=== PATIENT | male | born 1950 | race Caucasian/White ===

== ENCOUNTER 2016-05-24 08:45 | Emergency (ER) | payer MEDICARE ==
[2016-05-24 09:24] LABS: BASOPHILS 0.5 % (0.0-2.0); EOSINOPHILS 2.7 % (0-7); HEMATOCRIT 47.6 % (42.0-54.0); HEMOGLOBIN 16.2 g/dL (13.5-17.5); IMMATURE GRANULOCYTES 0.2 % (0-5); LYMPHOCYTES 30.2 % (15-50); MCH 32.7 pg (26.0-34.0); MEAN PLATELET VOLUME 10.5 fL (7.4-10.4); MONOCYTES 7.4 % (2-11); PLATELET COUNT 145 10x3/uL (130-400); RBC 4.96 10x6/uL (4.20-6.10); RDW 12.1 % (11.5-14.5); WBC 6.2 10x3/uL (4.8-10.8)
[2016-05-24 09:38] LABS: ALBUMIN 3.7 g/dL (3.4-5.0); ALKALINE PHOSPHATASE 93 U/L (46-116); ALT (SGPT) 28 U/L (10-68); BILIRUBIN - TOTAL 0.82 mg/dL (0.2-1.3); CALC OSMOLALITY 279 mosm/kg (275-300); CALCIUM 9.8 mg/dL (8.5-10.1); CARBON DIOXIDE 29.8 mmol/L (21.0-32.0); CHLORIDE - SERUM 104 mmol/L (98-107); CREATININE - SERUM 1.2 mg/dL (0.6-1.3); GLUCOSE 109 mg/dL (74-106); POTASSIUM - SERUM 4.2 mmol/L (3.5-5.1); PROTEIN - SERUM 7.2 g/dL (6.4-8.2); SODIUM 140 mmol/L (136-145); UREA NITROGEN 12 mg/dL (7-18); eGFR NON AFRICAN AMERICAN 64 mL/min (90-120)
[2016-05-24 09:50] LABS: CHOL - HDL RATIO 4.6 ratio (2.3-4.9); CHOLESTEROL, TOTAL 274 mg/dL (0-200); CKMB 1.1 U/L (0.0-3.6); CREATINE KINASE 75 UL (21-232); HDL CHOLESTEROL 59 mg/dL (32-96); LDL CHOLESTEROL 191 mg/dL (0-100); LDL-HDL RATIO 3.2 ratio (1.5-3.5); TRIGLYCERIDE 121 mg/dL (30-200); TROPONIN-I < 0.017 ng/mL (0.000-0.060)
== END 2016-05-24 10:20 | disposition home or self-care (01) ==
LOC: D.ER 08:45
PROVIDERS: Emergency Medicine
DX: R09.1 Pleurisy (principal); J20.9 Acute bronchitis, unspecified; J44.9 Chronic obstructive pulmonary disease, unspecified; M94.0 Chondrocostal junction syndrome [Tietze]

== ENCOUNTER 2016-07-06 09:12 | Emergency (ER) | payer MEDICARE ==
[2016-07-06 09:46] LABS: BASOPHILS 0.4 % (0.0-2.0); EOSINOPHILS 2.3 % (0-7); HEMATOCRIT 50.4 % (42.0-54.0); HEMOGLOBIN 17.3 g/dL (13.5-17.5); IMMATURE GRANULOCYTES 0.4 % (0-5); LYMPHOCYTES 18.9 % (15-50); MCH 33.3 pg (26.0-34.0); MCHC 34.3 g/dL (31.0-37.0); MCV 97.1 fL (80.0-100.0); MEAN PLATELET VOLUME 10.6 fL (7.4-10.4); RBC 5.19 10x6/uL (4.20-6.10); WBC 8.3 10x3/uL (4.8-10.8)
[2016-07-06 09:47] LABS: PLATELET COUNT 114 10x3/uL (130-400)
[2016-07-06 10:04] LABS: ALBUMIN 4.1 g/dL (3.4-5.0); ANION GAP 14.8 mmol/L (8-16); BILIRUBIN - TOTAL 0.8 mg/dL (0.2-1.3); CALCIUM 9.2 mg/dL (8.5-10.1); CARBON DIOXIDE 28.1 mmol/L (21.0-32.0); CREATININE - SERUM 1.4 mg/dL (0.6-1.3); POTASSIUM - SERUM 3.9 mmol/L (3.5-5.1); PROTEIN - SERUM 7.9 g/dL (6.4-8.2)
== END 2016-07-06 11:08 | disposition home or self-care (01) ==
LOC: D.ER 09:12
PROVIDERS: Emergency Medicine
DX: J44.1 Chronic obstructive pulmonary disease with (acute) exacerbation (principal); M94.0 Chondrocostal junction syndrome [Tietze]; R00.0 Tachycardia, unspecified

== ENCOUNTER → 2017-01-09 09:31 | Outpatient (CLI) | payer MEDICARE | END | disposition home or self-care (01) | LOC: D.NM 09:31 | DX: R07.89 Other chest pain (principal) ==

== ENCOUNTER 2017-02-21 18:20 | Emergency (ER) | payer MEDICARE ==
[2017-02-21 19:03] LABS: BASOPHILS 0.5 % (0-2); EOSINOPHILS 4.8 % (0-7); HEMOGLOBIN 16.3 g/dL (13.5-17.5); IMMATURE GRANULOCYTES 0.1 % (0-5); LYMPHOCYTES 29.9 % (15-50); MCH 32.9 pg (26.0-34.0); MCHC 34.7 g/dL (31.0-37.0); MCV 94.8 fL (80.0-100.0); MEAN PLATELET VOLUME 10.9 fL (7.4-10.4); MONOCYTES 7.9 % (2-11); NEUTROPHILS 56.8 % (40-80); RBC 4.96 10x6/uL (4.20-6.10); RDW 12.8 % (11.5-14.5); WBC 7.6 10x3/uL (4.8-10.8)
[2017-02-21 19:04] LABS: PLATELET COUNT 164 10x3/uL (130-400)
[2017-02-21 19:14] LABS: ALBUMIN 3.9 g/dL (3.4-5.0); ANION GAP 17.1 mmol/L (8-16); BILIRUBIN - TOTAL 0.68 mg/dL (0.2-1.3); CALCIUM 8.9 mg/dL (8.5-10.1); CARBON DIOXIDE 21.5 mmol/L (21.0-32.0); CREATININE - SERUM 1.2 mg/dL (0.6-1.3); POTASSIUM - SERUM 3.6 mmol/L (3.5-5.1); PROTEIN - SERUM 7.6 g/dL (6.4-8.2)
[2017-02-21 19:43] LABS: CREATINE KINASE 96 UL (21-232); TROPONIN-I < 0.017 ng/mL (0.000-0.060)
== END 2017-02-21 21:45 | disposition home or self-care (01) ==
LOC: D.ER 18:20
PROVIDERS: Emergency Medicine
DX: R55 Syncope and collapse (principal); F10.129 Alcohol abuse with intoxication, unspecified; J44.9 Chronic obstructive pulmonary disease, unspecified

== ENCOUNTER → 2017-06-08 19:05 | Outpatient (CLI) | payer MEDICARE ==
[~2017-06-08 19:05] MED LIST: IBUPROFEN200 MG PO; VENTOLIN HFA18 GM INH
== END | disposition home or self-care (01) ==
LOC: D.LABREF 19:05
DX: N39.0 Urinary tract infection, site not specified (principal)

== ENCOUNTER 2017-06-23 09:14 | Outpatient (CLI) | payer MEDICARE ==
[2017-06-23] MEDS ORDERED: IBUPROFEN200 MG PO (09:31)
[2017-06-23] MEDS ORDERED: VENTOLIN HFA18 GM INH (10:05)
[2017-06-23 10:20] LABS: HEMATOCRIT 46.5 % (42.0-54.0); HEMOGLOBIN 15.8 g/dL (13.5-17.5); MCH 32.6 pg (26.0-34.0); MCV 95.9 fL (80.0-100.0); MEAN PLATELET VOLUME 10.5 fL (7.4-10.4); RBC 4.85 10x6/uL (4.20-6.10); RDW 12.9 % (11.5-14.5); WBC 9.4 10x3/uL (4.8-10.8)
[2017-06-30 11:38] VITALS: BMI 30.4
== END 2017-06-23 23:59 | disposition home or self-care (01) ==
LOC: D.OPS 09:14 → EDSTATUS 06-24 07:30
PROVIDERS: Anesthesiology
DX: Z53.9 Procedure and treatment not carried out, unspecified reason (principal); Z01.810 Encounter for preprocedural cardiovascular examination; Z01.811 Encounter for preprocedural respiratory examination; Z01.812 Encounter for preprocedural laboratory examination

== ENCOUNTER 2017-06-30 10:52 | Outpatient (CLI) | payer MEDICARE ==
[~2017-06-30] VITALS: Ht 172.7 cm; Wt 90.9 kg
--- NOTE | ~2017-06-30 | OP ---
PATIENT NAME: AIDAN SHER MEDICAL RECORD: [id number] :48 LOCATION:D.CAT ADMISSION DATE: SURGEON: SAUD MUHAMMAD MD DATE OF OPERATION: 06/30/2017 PROCEDURES: Left heart catheterization, selective coronary angiography, right radial approach. CATHETERS: Radial sheath, [place] catheter. The procedure was well tolerated. Proceeded with PTCA and stenting of the LAD. FINDINGS: Left ventriculography in the 30-degree WARE view: Normal wall motion, normal systolic function. CORONARY ANATOMY: LEFT MAIN: Left main is free of disease. LAD: LAD has a diffuse 80% stenosis in the mid portion. CIRCUMFLEX: Left dominant system, free of disease. RIGHT CORONARY ARTERY: Rudimentary, free of disease. IMPRESSION: Single-vessel disease involving LAD, intervention to LAD momentarily. DESCRIPTION OF PROCEDURE: Using indwelling radial sheath, EBU 3.5 guiding catheter provided good guide catheter support, followed by 300 cm Whisper wire was placed across the occluded LAD down to portion of the vessel. Stent deployed was a 2.5 x 15 Integrity nondrug-eluting stent, inflated to 14 atmospheres for 45 seconds. Final angiography shows excellent resolution of 80% stenosis, no significant residual. GABRIEL flow was 3 throughout the procedure. Heparin and Integrilin were used during the case. Plavix was loaded in the lab. Sheath was closed with TR band. TRANSINT:[id number] Voice Confirmation ID: [id number] DOCUMENT ID: [id number] SAUD MUHAMMAD MD at 1512 CC: [id number] DICTATION DATE: 06/30/17 1337 TELESERVICES REPRESENTATIVE: 06/30/17 1417 DEP CLI 06/30/17 [facility] [address] [place] [address]
--- NOTE | ~2017-06-30 | HEMODYNAMI ---
PATIENT:AIDAN SHER MEDICAL RECORD: [id number] : 48 LOCATION:[facility] ADMISSION DATE: 06/30/17 Generatedon:06/30/201713:36 Patient name: AIDAN SHER Patient #: [id number] SSN: : 1950 Date of study: 06/30/2017 Page: Of Hemodynamic Procedure Report Patient Data Patient Demographics Procedure consent was obtained First Name: AIDAN Gender: Male Last Name: CHRISTOS : 1950 Middle Initial: M Age: 66 year(s) Patient #: [id number] Race: Unknown Additional ID: [id number] Contact details Address: [place] [address] State: [place] City: [place] Zip code: [address] Past Medical History Allergies: No known allergies Admission Admission Data Admission Date: 06/30/2017 Admission Time: 10:52 Admit Source: Other Lab Results Lab Result Date: 06/30/2017 Lab Result Time: 11:55 Biochemistry Name Units Result Min Max BUN mg/dl 16 --(---*)-- 7 18 Creatinine mg/dl 1.2 --(---*)-- 0.6 1.3 CBC Name Units Result Min Max Hematocrit % 42.8 --(*---)-- 42 54 Hemoglobin g/dl 15.1 --(-*--)-- 13.5 17.5 Procedure Procedure Types Cath Procedure Diagnostic Procedure [facility] w/Coronaries PCI Procedure Coronary Stent Coronary Stent Initial Miscellaneous Procedures Moderate Sedation up to 15 minutes Procedure Description Procedure Date Procedure Date: 06/30/2017 Procedure Start Time: 13:14 Procedure End Time: 13:35 Procedure Staff Name Function Yoav Lopez RT Monitor Sherri Trivedi RT Scrub Alex Wright RN Nurse Colt Harper MD Performing Physician Procedure Data Cath Procedure Fluoroscopy Diagnostic fluoroscopy Total fluoroscopy Time: 3.1 time: 3.1 min min Diagnostic fluoroscopy Total fluoroscopy dose: 990 dose: 990 mGy mGy Contrast Material Contrast Material Type Amount (ml) Isovue 300 85 Entry Location Entry Primary Successful Side Size Upsize Upsize Entry Closure Ayala ccessful Closure Location (Fr) 1 (Fr) 2 (Fr) Remarks Device Remarks Radial Right 6 Fr Mechanical artery Short Compression Estimated blood loss: 10 ml Diagnostic catheters Device Type Used For End Catheter Placement DIAGNOSTIC [place] 110cm 5 Procedure Fr catheter ([id number]) Procedure Complications No complications Procedure Medications Medication Administration Route Dosage 0.9% NaCl I.V. 100 ml/hr Oxygen NC 2 l/min Heparin Flush Bag added to field 2 bags (1000units/500ml NS) Lidocaine 2% added to field 20 Radial Cocktail added to field 1 syringe (Verapomil 2mg/Nitro 400mcg/Heparin 1500units) Versed I.V. 2 mg Fentanyl I.V. 100 mcg Radial Cocktail I.A. 1 syringe (Verapomil 2mg/Nitro 400mcg/Heparin 1500units) Heparin Bolus I.V. 5000 units Integrilin (Bolus I.V. 8.5 ml 2mg/ml) Integrilin (Bolus wasted 1.5 ml 2mg/ml) Plavix P.O. 600 mg Hemodynamics Rest HGB: 15.1 (g/dl) Heart Rate: 91 (bpm) Pressure Samples Time Site Value (mmHg) Purpose Heart Use Rate(bpm) 13:17 LV 104/5,9 Snapshot 94 13:18 AO 100/68(82) Pullback 92 13:18 LV 100/9,9 Pullback 92 Gradients Valve Time Site 1 Site 2 Mean SEP/DFP Peak To Heart Use (mmHg) (sec/min) Peak Rate (mmHg) (bpm) Aortic 13:18 LV AO 1 7 0 92 100/9,9 100/68(82) Calculations Valve P-P Mean Valve Index Valve Source Name Gradient Area Flow (cm2) Aortic 0 1 0 1 Snapshots Pre Cath Intra NCS Post Cath Vital Signs Time Heart Resp SPO2 etCO2 NIBP (mmHg) Rhythm Pain Sedation Rate (ipm) (%) (mmHg) Status Level (bpm) 13:06:01 87 18 96 0 131/97(118) NSR 0 (11) 10(A) , No pain 13:10:35 88 14 96 0 129/87(117) NSR 0 (11) 10(A) , No pain 13:15:12 82 15 95 0 121/81(100) NSR 0 (11) 10(A) , No pain 13:19:50 90 15 93 0 111/57(75) NSR 0 (11) 10(A) , No pain 13:24:27 93 15 93 0 116/76(94) NSR 0 (11) 10(A) , No pain 13:29:01 87 16 94 0 118/76(88) NSR 0 (11) 10(A) , No pain 13:35:04 90 18 0 120/76(104) NSR 0 (11) 10(A) , No pain Medications Time Medication Route Dose Verified Delivered Reason Note s Effectiveness by by 13:03:05 0.9% NaCl I.V. 100 Alex Alex Per physician ml/hr Kyle Wright RN, RN 13:03:24 Oxygen NC 2 l/min Alex Alex Per physician Kyle Wright RN, RN 13:03:38 Heparin Flush added 2 bags Alex Alex used for Bag to Kyle Wright procedure (1000units/500ml field MARIA DEL ROSARIO MIX NS) 13:04:43 Lidocaine 2% added 20ml Alex Alex for local to vial Lornegin Lornegin anesthetic field MARIA DEL ROSARIO MIX 13:04:59 Radial Cocktail added 1 Alex Alex used for (Verapomil to syringe Lorigan Lorigan procedure 2mg/Nitro field MARIA DEL ROSARIO MIX 400mcg/Heparin 1500units) 13:12:59 Versed I.V. 2 mg Alex Alex for sedation Kyle Wright RN, RN 13:13:09 Fentanyl I.V. 100 mcg Alex Alex for sedation Kyle Wright RN, RN 13:16:04 Radial Cocktail I.A. 1 Alex Colt for (Verapomil syringe Lorigan Meredith vasodilation 2mg/Nitro MARIA DEL ROSARIO QIU 400mcg/Heparin 1500units) 13:27:34 Heparin Bolus I.V. 5000 Alex Alex for units Kyle Wright anticoagulation RN RN 13:28:08 Integrilin I.V. 8.5 ml Alex Alex for (Bolus 2mg/ml) Kyle Wright antiplatelet RN RN therapy 13:28:21 Integrilin wasted 1.5 ml Alex Alex to sharp's (Bolus 2mg/ml) Kyle Wright RN RN 13:33:44 Plavix P.O. 600 mg Alex Wright antiplatelet RN RN therapy Procedure Log Time Note 12:40:02 Alex Wright RN sent for patient. Start room use. 12:40:24 Informed consent obtained and on chart 12:40:29 Admit Source: Other 12:45:12 Diagnostic Cath status Elective 12:45:13 Time tracking: Regular hours 12:45:17 Plan of Care:Hemodynamics will remain stable., Cardiac rhythm will remain stable., Comfort level will be maintained., Respiratory function will remain adequate., Patient/ family verbilizes understanding of procedure., Procedure tolerated without complication., Recovers from procedure without complications.. 12:45:33 H&P Date Dictated: 06/25/2017 Within 30 days and on chart., H&P Addendum completed by physician on day of procedure. (MUST COMPLETE FOR ALL OUTPATIENTS). 12:45:35 Family in waiting room. 12:45:36 Patient NPO since Midnight. 12:52:35 Patient received from Pre/Post Procedure Room to CCL 1 Alert and oriented. Tansferred to table in Supine position. 12:52:36 Warm blankets applied, and jennifer hugger turned on for patient comfort. 12:52:36 Correct patient and procedure confirmed by team. 12:52:37 ECG and BP/O2 sat monitors applied to patient. 12:52:39 Pre-procedure instructions explained to patient. 12:52:39 Pre-op teaching completed and patient verbalized understanding. 12:54:19 Patient allergic to No known allergies 12:54:22 Is the patient allergic to Iodine/contrast media? No. 12:55:09 Lab Result : BUN 16 mg/dl 12:55:09 Lab Result : Hemoglobin 15.1 g/dl 12:55:09 Lab Result : Creatinine 1.2 mg/dl 12:55:09 Lab Result : Hematocrit 42.8 % 12:55:12 Lab results completed and on chart. 13:03:05 0.9% NaCl 100 ml/hr I.V. was administered by Alex Wright RN; Per physician; 13:03:24 Oxygen 2 l/min NC was administered by Alex Wright RN; Per physician; 13:03:38 Heparin Flush Bag (1000units/500ml NS) 2 bags added to field was administered by Alex Lorigan RN; used for procedure; 13:04:43 Lidocaine 2% 20ml vial added to field was administered by Aelx Wright RN; for local anesthetic; 13:04:59 Radial Cocktail (Verapomil 2mg/Nitro 400mcg/Heparin 1500units) 1 syringe added to field was administered by Alex Wright RN; used for procedure; 13:05:05 Vital chart was started 13:10:10 Baseline sample Acquired. 13:10:14 Rhythm: unchanged. 13:10:15 Full Disclosure recording started 13:10:18 Is patient on blood thinner?No 13:10:19 Patient diabetic? No. 13:10:21 Previous problem with sedation/anesthesia? No ? 13:10:21 Snore? Yes 13:10:22 Sleep apnea? No 13:10:23 Deviated septum? No 13:10:24 Opens mouth fully? Yes 13:10:25 Sticks out tongue? Yes 13:10:27 Airway obstruction? Yes COPD 13:10:30 Dentures? No ? 13:10:40 Pre procedure: right dorsailis pedis pulse 2+ Normal; easily identifiable; not easily obliterated 13:10:42 Patient pain scale 0/10 ?. 13:10:53 IV patent on arrival in right antecubital with 0.9% NaCl at [facility]. 13:11:00 Right Radial & Right Groin area was prepped with chlora-prep and draped in sterile fashion 13:11:05 Modified Jose's test Ulnar < 7 seconds 13:11:06 Alarms reviewed by R. N. 13:11:06 Sharps counted by scrub and verified by R.N. 13:11:09 Use device set Radial Dx or PCI 13:11:11 ACIST Syringe (40091) opened to sterile field. 13:11:11 Medline Cath Pack ([id number]) opened to sterile field. 13:11:12 ACIST Hand Control (76233) opened to sterile field. 13:11:13 ACIST Manifold (27224) opened to sterile field. 13:11:14 Tegaderm 4 x 4 (1626W) opened to sterile field. 13:11:14 MBrace Wrist Support ([id number]) opened to sterile field. 13:11:16 Bag Decanter (2002S) opened to sterile field. 13:11:18 DIAGNOSTIC WIRE .035 260cm J wire (365364) opened to sterile field. 13:11:19 SHEATH 6FR Slender ([id number]) opened to sterile field. 13::27 Physician arrived :: --------ALL STOP TIME OUT------ :: Final Timeout: patient, procedure, and site verified with staff and physician. All members of the team are in agreement. 13:11:30 Right Radial & Right Groin site verified by team. 13::33 Physical assessment completed. ASA score P 2 - A patient with mild systemic disease as per Colt Harper MD. 13:11:36 Sedation plan: IV Moderate Sedation Medication:Versed, Fentanyl 13:12:59 Versed 2 mg I.V. was administered by Alex Wright RN; for sedation; 13:13:09 Fentanyl 100 mcg I.V. was administered by Alex Wright RN; for sedation; 13:13:16 Zero performed for pressure channel P1 13:14:49 Procedure started. 13:14:54 Local anesthetic to right radial artery with Lidocaine 2% by Colt Harper MD.INITIAL ACCESS ONLY 13:15:01 A 6 Fr Short sheath was inserted into the Right Radial artery 13:16:04 Radial Cocktail (Verapomil 2mg/Nitro 400mcg/Heparin 1500units) 1 syringe I.A. was administered by Colt Harper MD; for vasodilation; 13:16:22 A DIAGNOSTIC [place] 110cm 5 Fr catheter ([id number]) was advanced over the wire and used for Procedure. 13:17:43 LV gram done using WARE 13:17:45 Injector settings: Ml/sec: 5, Volume: 15, 13:17:53 EF : 55 % 13:18:17 LCA angiography performed. 13:20:09 RCA angiography performed. 13:20:24 GUIDE 6FR EBU 3.5 catheter ([id number]) opened to sterile field. 13:20:31 Catheter exchanged over wire. 13:20:42 6 Fr EBU 3.5 guide catheter was inserted over the wire 13:22:33 LCA angiography performed. 13:24:28 INFLATOR Merit BasixCompak (VH4187) opened to sterile field. 13:26:10 WHISPER 300cm guide wire ([id number]) opened to sterile field. 13:27:04 whisper wire advanced. 13::34 Heparin Bolus 5000 units I.V. was administered by Alex Wright RN; for anticoagulation; 13:28:08 Integrilin (Bolus 2mg/ml) 8.5 ml I.V. was administered by Alex Wright RN; for antiplatelet therapy; 13:28:20 Wire advanced across lesion. 13:28:21 Integrilin (Bolus 2mg/ml) 1.5 ml wasted was administered by Alex Wright RN; to sharp's; 13::37 Inflation Number: 1 A INTEGRITY OTW 2.5 X 18 stent ([id number]) was prepped and advanced across the Mid LAD. The stent was deployed at 14 PHILLIP for 0:45 (min:sec). 13:30:16 Stent catheter was removed intact over wire. 13:30:17 Wire removed. 13:30:17 Guide catheter removed. 13:30:19 TR BAND Standard ([id number]) opened to sterile field. 13:30:28 Sheath removed intact; hemostasis achieved with Mechanical Compression to the Right Radial artery. 13:30:29 Procedure ended.(Physican Out) ::34 Fluoroscopy time 03.10 minutes. 13::38 Flurop Dose total: 990 13::38 Fluoroscopy dose: 990 mGy 13::53 Contrast amount:Isovue 300 85ml. 13:31:56 Sharps counted by scrub and verified by R.N. 13:33:22 Insertion/operative site no bleeding no hematoma. 13:33:27 TR band inflated with 12cc of air. 13:33:34 Post Procedure Pulses reassessed and unchanged 13:33:37 Post-procedure physical assessment completed. ASA score P 2 - A patient with mild systemic disease as per Colt Harper MD. 13:33:39 Post procedure rhythm: unchanged. 13:33:44 Plavix 600 mg P.O. was administered by Alex Wright RN; for antiplatelet therapy; 13:33:45 Estimated blood loss: 10 ml 13:33:46 Post procedure instruction explained to patient.Patient verbalizes understanding. 13:33:47 Patient needs reinforcement of post procedure teaching. 13:34:40 Procedure type changed to Cath procedure, Diagnostic procedure, LHC, LHC w/Coronaries, PCI procedure, Coronary Stent, Coronary Stent Initial, Miscellaneous Procedures, Moderate Sedation up to 15 minutes 13:35:00 Procedure and supply charges have been captured, reviewed, submitted and are correct. 13:35:02 Procedure Complication : No complications 13:35:04 Vital chart was stopped 13:35:04 See physician's report for complete and final results. 13:35:05 Report given to Pre/Post Procedure Room. 13:35:07 Patient transfered to Pre/Post Procedure Room with Stretcher. 13:35:09 Procedure ended. 13:35:09 Full Disclosure recording stopped 13:35:17 End room use (Document Last) Intervention Summary Intervention Notes Time ActionType Lesion and Equipment Action# Pressure Duration Attributes Used 13:29:37 Place stent Mid LAD INTEGRITY 1 14 00:45 OTW 2.5 X 18 stent ([id number]) Device Usage Item Name Manufacture Quantity Catalog Hospital Part Current Minima l Lot# / Number Charge Number Stock Stock Serial# Code ACIST Acist 1 90137 812916 284094 455117 20 Syringe Medical (49352) Systems Inc Medline Cath Cardinal 1 [id number] 563779 12848 995908 5 Pack Health ([id number]) ACIST Hand Acist 1 72002 324818 151519 753669 5 Control Medical (74550) Systems Inc ACIST Acist 1 28114 673041 443692 468667 5 Manifold Medical (78020) Systems Inc Tegaderm 4 x 3M 1 1626W 431962 107222 633353 5 4 (1626W) MBrace Wrist Advanced 1 140-0250-00 887726 49245 262537 5 Support Vascular (696162004) Dynamics Bag Decanter Microtek 1 2001S 644339 99773 038147 5 (2001S) Medical Inc. DIAGNOSTIC [facility] Frank 1 733741 343584 787057 205182 30 WIRE .035 260cm J wire (454763) SHEATH 6FR Terumo 1 [id number] 357034 552822 965814 40 Slender ([id number]) DIAGNOSTIC Terumo 1 40-8902 761859 135920 866186 5 [place] 110cm 5 Fr catheter (830808) GUIDE 6FR Medtronic 1 [id number] 267093 16012 674621 3 EBU 3.5 catheter ([id number]) INFLATOR [facility] 1 AK8232 285182 698791 162027 15 [facility] Medical BasixCompak (PC1634) WHISPER [place] 1 [id number] 784898 258975 732295 5 300cm guide Vascular wire ([id number]) INTEGRITY Medtronic 1 [id number] 951842 665886 2 [id number] OTW 2.5 X 18 stent ([id number]) TR BAND Terumo 1 [id number] 063763 738999 790221 40 Standard (AIT94STR) Signature Audit [place] Stage Time Signature Unsigned Intra-Procedure 06/30/2017 Yoav Lopez 1:36:33 PM RT(R) Signatures Monitor : Yoav Lopez RT Signature : Date : Time : [address] [address]
[2017-06-30] MEDS ORDERED: VIBRAMYCIN 100100 MG PO (11:25)
[2017-06-30 11:38] VITALS: BP 159/94; Ht 172.7 cm; Wt 90.9 kg
[2017-06-30 11:57] LABS: HEMATOCRIT 42.8 % (42.0-54.0); HEMOGLOBIN 15.1 g/dL (13.5-17.5); LYMPHOCYTES 13.9 % (15-50); MCH 31.9 pg (26.0-34.0); MCHC 35.3 g/dL (31.0-37.0); MCV 90.5 fL (80.0-100.0); MEAN PLATELET VOLUME 10.4 fL (7.4-10.4); NEUTROPHILS 79.4 % (40-80); PLATELET COUNT 136 10x3/uL (130-400); RBC 4.73 10x6/uL (4.20-6.10); RDW 12.6 % (11.5-14.5)
[2017-06-30 12:06] LABS: ANION GAP 14.9 mmol/L (8-16); CALCIUM 8.9 mg/dL (8.5-10.1); CARBON DIOXIDE 22.6 mmol/L (21.0-32.0); CREATININE - SERUM 1.2 mg/dL (0.6-1.3); POTASSIUM - SERUM 3.5 mmol/L (3.5-5.1)
[2017-06-30] MEDS ORDERED: PLAVIX75 MG PO (13:52)
[2017-06-30] MEDS ORDERED: BAYER CHEWABLE81 MG PO (13:53)
== END 2017-06-30 17:27 | disposition home or self-care (01) ==
LOC: D.CATH 10:52
PROVIDERS: Internal Medicine Interventional Cardiology
DX: I20.9 Angina pectoris, unspecified (principal); J44.9 Chronic obstructive pulmonary disease, unspecified; R94.31 Abnormal electrocardiogram [ECG] [EKG]; Z01.812 Encounter for preprocedural laboratory examination

== ENCOUNTER → 2017-07-01 09:52 | Outpatient (CLI) | payer MEDICARE ==
[2017-06-30 11:38] VITALS: BMI 30.4
[~2017-07-01 09:52] MED LIST changes: +BAYER CHEWABLE81 MG PO; +PLAVIX75 MG PO; +VIBRAMYCIN 100100 MG PO
== END | disposition home or self-care (01) ==
LOC: D.RT 09:52
DX: R06.02 Shortness of breath (principal)

== ENCOUNTER → 2017-07-23 11:01 | Outpatient (CLI) | payer MEDICARE ==
[2017-06-30 11:38] VITALS: BMI 30.4
[2017-07-23 18:34] LABS: BASOPHILS 0.2 % (0-2); EOSINOPHILS 0.9 % (0-7); HEMATOCRIT 49.9 % (42.0-54.0); HEMOGLOBIN 16.4 g/dL (13.5-17.5); IMMATURE GRANULOCYTES 0.6 % (0-5); LYMPHOCYTES 20.9 % (15-50); MCH 32.5 pg (26.0-34.0); MCHC 32.9 g/dL (31.0-37.0); MEAN PLATELET VOLUME 11.3 fL (7.4-10.4); MONOCYTES 9.2 % (2-11); NEUTROPHILS 68.2 % (40-80); PLATELET COUNT 134 10x3/uL (130-400); RBC 5.04 10x6/uL (4.20-6.10); RDW 14.7 % (11.5-14.5); WBC 8.7 10x3/uL (4.8-10.8)
== END | disposition home or self-care (01) ==
LOC: D.LABREF 11:01
PROVIDERS: Internal Medicine Pulmonary Disease
DX: J44.9 Chronic obstructive pulmonary disease, unspecified (principal)

== ENCOUNTER → 2017-08-19 09:46 | Outpatient (CLI) | payer MEDICARE ==
[2017-06-30 11:38] VITALS: BMI 30.4
== END | disposition home or self-care (01) ==
LOC: D.CT 09:46
DX: R06.00 Dyspnea, unspecified (principal)

== ENCOUNTER 2017-12-02 06:51 | Day surgery (SDC) | payer MEDICARE ==
[~2017-12-02] VITALS: Ht 172.7 cm; Wt 89.8 kg
--- NOTE | ~2017-12-02 | OP ---
PATIENT NAME: AIDAN SHER MEDICAL RECORD: [id number] :48 LOCATION:[facility] ADMISSION DATE: SURGEON: JOSE MCNEIL MD DATE OF OPERATION: 12/02/2017 SURGEON: Jose Mcneil MD ANESTHESIA: TIVA by Ruddy Otto CRNA. DIAGNOSIS: Elevated PSA 29.2 with 6% free PSA. PROCEDURE: Transrectal ultrasound with prostate biopsy. FINDINGS: 29-gram prostate with intraprostatic stones, no hypoechoic areas. SPECIMENS: Prostate biopsy cores. BLOOD LOSS: Minimal. CLINICAL HISTORY: This is a 67-year-old male, who does not have a family history of prostate cancer. He does have obstructive BPH symptoms with urinary frequency, urgency and slow urinary flow. His PSA is elevated at 29.2 and the free PSA is extremely low at 6%. He comes today to have a prostate biopsy performed. He is not allergic to any medications and he was given Ancef continuous mining machine lode miner to the OR. DESCRIPTION OF PROCEDURE: The patient was given IV sedation. He was placed into dorsal lithotomy position and prepped and draped. The transrectal ultrasound probe was introduced and prostate size measurements were obtained. We estimated the prostate size at 29 grams. Intraprostatic calcifications were seen. However, no hypoechoic areas were seen. Sextant biopsies were obtained with at least 3 cores from each sextant. Once all the specimens were obtained, the procedure was terminated. The patient was awakened and brought back to the preoperative holding area. I will be seeing him in followup in a couple weeks' time to review the pathology with him. TRANSINT:[id number] Voice Confirmation ID: [id number] DOCUMENT ID: [id number] JOSE MCNEIL MD at 1055 CC: [id number] DICTATION DATE: 12/02/17 0948 CODE MACHINE OPERATOR: 12/02/17 1043 REG [facility] [address] [place] [address]
[~2017-12-02 06:51] MED LIST changes: +BREO ELLIPTA 21 EACH; +FLUTICASONE PRO16 GM NASAL; +SYMBICORT 16010.2 GM INH
[2017-12-02 07:23] LABS: HEMATOCRIT 43.1 % (42.0-54.0); HEMOGLOBIN 14.9 g/dL (13.5-17.5); MCHC 34.6 g/dL (31.0-37.0); MCV 98.4 fL (80.0-100.0); MEAN PLATELET VOLUME 10.1 fL (7.4-10.4); RBC 4.38 10x6/uL (4.20-6.10); RDW 15.1 % (11.5-14.5); WBC 6.5 10x3/uL (4.8-10.8)
[2017-12-02] MEDS ORDERED: SULFATRIM SUSP100 ML PO (08:41)
[2017-12-02] MEDS ORDERED: SINGULAIR10 MG PO (08:42)
[2017-12-02 08:43] VITALS: BP 138/89; Ht 172.7 cm; Wt 89.8 kg
== END 2017-12-02 11:40 | disposition home or self-care (01) ==
LOC: D.OPS 06:51 → D.PAN 09:30 → D.OPS 11:40
PROVIDERS: Anesthesiology
DX: R97.20 Elevated prostate specific antigen [PSA] (principal); N40.1 Benign prostatic hyperplasia with lower urinary tract symptoms; R35.0 Frequency of micturition; R39.15 Urgency of urination; R39.12 Poor urinary stream; N42.31 Prostatic intraepithelial neoplasia; Z01.812 Encounter for preprocedural laboratory examination

== ENCOUNTER → 2018-05-31 13:59 | Outpatient (CLI) | payer MEDICARE ==
[2017-12-02 08:43] VITALS: BMI 30.1
[~2018-05-31 13:59] MED LIST changes: +SINGULAIR10 MG PO; +SULFATRIM SUSP100 ML PO
== END | disposition home or self-care (01) ==
LOC: D.MRI 13:59
DX: R42 Dizziness and giddiness (principal)

== ENCOUNTER → 2018-07-29 09:34 | Outpatient (CLI) | payer MEDICARE ==
[2017-12-02 08:43] VITALS: BMI 30.1
--- NOTE | 2018-08-01 10:39 | EC ---
PATIENT:AIDAN SHER DATE OF SERVICE: 07/29/18 SEX: M MEDICAL RECORD: [id number] DATE OF : [birth year] LOCATION:[facility] AGE OF PATIENT: 67 ADMISSION DATE: 07/29/18 REFERRING PHYSICIAN: INTERPRETING PHYSICIAN: SAUD MUHAMMAD MD ECHOCARDIOGRAM REPORT ECHO CHARGES 4 ECHO COMPLETE Date: 07/29/18 CLINICAL DIAGNOSIS: CAD HX OF CAD/COPD/HTN ECHOCARDIOGRAPHIC MEASUREMENTS (adult normal given) AC root (d.<3.7cm) 4.8 cm LV Septum d (<1.2 cm> 1.7 cm Valve Excursion 2.0 cm LV Septum (systole) 2.0 cm Left Atria (s.<4.0cm> 3.1 cm LVPW d(<1.2cm) 1.8 cm RV (d.<2.3cm) 2.6 cm LVPW (sytole) 2.2 cm LV diastole(<5.6CM) 5.3 cm MV E-F(>70mm/sec) cm LV systole 3.5 cm LVOT Diameter 2.3 cm MV exc.(>10mm) cm Est.ejection fraction (50-75%) % DOPPLER: LVIT cm/sec A 96.0 cm/sec E 81.0 cm/sec LA cm/sec RVSP 21 mmHg LVOT 110 cm/sec AOP1/2T 654 m/s Asc. Ao 118 cm/sec RVOT cm/sec RA cm/sec PA cm/sec AV Gradient Peak 5.59 mmHg AV Mean 2.94 mmHg AV Area 4.2 cm MV Gradient Peak 5.34 mmHg MV Mean 2.01 mmHg MV Area cm COMMENTS: Pocket Assembler: 2 RICHARD GAUTAM Customer Success Director: 3 Dr. Harper TAPE# PACS Pericardial Effusion N DATE OF SERVICE: Adequate 2-D, color-flow and spectral Doppler, and M-mode. LVH is present. LV internal dimensions are normal. Wall motion is normal. EF is greater than or equal to 55%. Aortic valve is tricuspid. No evidence of stenosis by Doppler interrogation. Left atrium is normal at 3.7 cm. Mitral valve shows no prolapse. Trace MR. Right-sided chambers are grossly normal. Trace TR. ECHOCARDIOGRAM REPORT [id number] AIDAN SHER TRANSINT:[id number] Voice Confirmation ID: [id number] DOCUMENT ID: [id number] SAUD MUHAMMAD MD at 1039 CC: [id number] DICTATION DATE: 07/30/18 1203 CERTIFIED MEDICAL TECHNICIAN ASSISTANT: 07/30/18 1240 DEP CLI 07/29/18 [place] [id number] [place] [id number]
== END | disposition home or self-care (01) ==
LOC: D.HCCARDIO 09:34
PROVIDERS: ATTEND Internal Medicine Interventional Cardiology
DX: I25.10 Atherosclerotic heart disease of native coronary artery without angina pectoris (principal)

== ENCOUNTER 2019-04-23 12:31 | Emergency (ER) | payer MEDICARE ==
[~2019-04-23] VITALS: Ht 172.7 cm; Wt 100.0 kg
[2019-04-23 12:41] VITALS: Ht 172.7 cm; Wt 100.0 kg
[2019-04-23 13:01] LABS: APPEARANCE CLEAR (CLEAR); BILIRUBIN NEGATIVE (NEGATIVE); COLOR YELLOW (YELLOW); GLUCOSE NEGATIVE (NEGATIVE); KETONE NEGATIVE (NEGATIVE); NITRITE NEGATIVE (NEGATIVE); PROTEIN NEGATIVE (NEGATIVE); SPECIFIC GRAVITY 1.015 (1.005-1.020); UROBILINOGEN NORMAL (NORMAL)
[2019-04-23] MEDS ORDERED: FLOMAX0.4 MG PO (14:05)
[2019-04-23 15:15] VITALS: BP 122/72
== END 2019-04-23 15:15 | disposition home or self-care (01) ==
LOC: D.ER 12:31
PROVIDERS: Family Medicine
DX: R33.9 Retention of urine, unspecified (principal)

== ENCOUNTER 2019-06-02 07:12 | Day surgery (SDC) | payer MEDICARE ==
[2019-05-31 11:14] LABS: HEMATOCRIT 50.7 % (42.0-54.0); MCH 31.7 pg (26.0-34.0); MCHC 33.5 g/dL (31.0-37.0); MCV 94.4 fL (80.0-100.0); MEAN PLATELET VOLUME 10.3 fL (7.4-10.4); RBC 5.37 10x6/uL (4.20-6.10); WBC 7.6 10x3/uL (4.8-10.8)
[~2019-06-02] VITALS: Ht 172.7 cm; Wt 95.3 kg
[~2019-06-02 07:12] MED LIST changes: +FLOMAX0.4 MG PO; +IPRAT-ALBUT 0.5-3 ML UPD; +PRAVACHOL40 MG PO
[2019-06-02] MEDS ORDERED: BREO ELLIPTA 11 EACH INH (08:15)
[2019-06-02] MEDS ORDERED: PROSCAR5 MG PO (08:16)
[2019-06-02 08:29] VITALS: BP 132/82; Ht 172.7 cm; Wt 95.3 kg
--- NOTE | 2019-06-02 11:31 | NUR ---
1015-TRAY TO ROOM. VSS. DENIES PAIN.LOVELL DRAINING BY GRAVITY. LIGHT RED URINE
--- NOTE | 2019-06-02 12:07 | OP ---
PATIENT NAME: AIDAN SHER MEDICAL RECORD: [id number] :48 LOCATION:[facility] ADMISSION DATE: SURGEON: JOSE MCNEIL MD DATE OF OPERATION: 06/02/2019 SURGEON: Jose Mcneil MD ANESTHESIA: TIVA by Cesar Rose CRNA. DIAGNOSES: 1. Bladder tumor 2. Obstructive BPH. PSA 29.2. Transrectal ultrasound showed a 29 gram prostate. Pathology on prostate biopsy was benign. IPSS score is 34 and quality of life score is 5 on tamsulosin. Postvoid residual was 324 mL. FINDINGS: On cystoscopy, areas of petechial hemorrhage on the bladder wall. These were biopsied. Large obstructive lateral lobes of the prostate. Single ureteral orifices bilaterally. SPECIMENS: Bladder biopsy times 2. PROCEDURE: Bladder biopsy times 2-and UroLift times 6 units deployed and 5 held. ESTIMATED BLOOD LOSS: None. CLINICAL HISTORY: This is a 68-year-old male, who was referred with an elevated PSA of 29.2. He had a prostate biopsy, which was benign. Transrectal ultrasound showed a 29 gram prostate. He has significant voiding symptoms including urinary frequency every 10-15 minutes and nocturia times 10-12. He has incomplete bladder emptying with a postvoid residual of 324 mL with tamsulosin on board. He has never smoked, but he does have oxygen dependent emphysema. He has been exposed to asbestos in the past. HE IS ALLERGIC TO SULFA. He was given Levaquin IV asset protection assistant to the OR. DESCRIPTION OF PROCEDURE: The patient was given IV sedation. He was then placed in the lithotomy position and prepped and draped. The UroLift scope was used initially. We then found an area of red cell clusters on the dome and anterior wall of the bladder. We switched over to the regular cystoscope and with the biopsy forceps, we biopsied 2 of these areas. The lesion on the dome was biopsied as well as a lesion on the anterior wall of the bladder. These were sent to pathology in formalin. We then switched back to the UroLift scope. At the anterior lateral sulcus 1.5 cm distal to the bladder neck, we placed 1 UroLift unit on each side. On the right side, I initially struck bone and this unit misfired. I placed another unit in this area and it worked fine. The anterolateral sulcus on each side,one unit was placed at the verumontanum level. Looking in with the obturator, there was still some obstruction in the mid prosthetic region. Therefore, on the right side at the mid urethral level, another UroLift unit was placed. Thus, he has a total of [address] Six units had been fired with 1 bone strike creating a misfire. Because of the bladder biopsy that I had performed, I placed a 16-Khmer Baker catheter and inflated the balloon with 10 cc of sterile water. I will see the patient in followup next week to remove the catheter for a voiding trial. TRANSINT:[id number] Voice Confirmation ID: [id number] DOCUMENT ID: [id number] OPERATIVE REPORT [id number] AIDAN SHER ROBERT S MD at 1207 CC: [id number] DICTATION DATE: 06/02/19 0954 ORTHODONTIST VICE PRESIDENT: 06/02/19 1203 PRE [facility] [address] [place] [address]
--- NOTE | 2019-06-02 13:39 | NUR ---
1043-DISCHARGE CRITERIA MET.REMOVED IV WITH CATH INTACT,DISPOSED INTO SHARPS,COVERED SITE WITH GUAZE,SECURED WITH MEDIPORE TAPE. REVIEWED POST OPERATIVE INSTRUCTIONS,LOVELL CARE,AND FOLLOW UP APPOINTMENT.VERBALIZED UNDERSTANDING. ESCORTED OUT VIA W/C WITH DAUGHTER TO [facility]
== END 2019-06-02 10:43 | disposition home or self-care (01) ==
LOC: D.OPS 07:12 → D.PAN 09:20 → D.OPS 09:30 → D.PAN 09:45 → D.OPS 09:45
PROVIDERS: Anesthesiology; ATTEND Urology
DX: D49.4 Neoplasm of unspecified behavior of bladder (principal); N40.1 Benign prostatic hyperplasia with lower urinary tract symptoms; J44.9 Chronic obstructive pulmonary disease, unspecified; R33.9 Retention of urine, unspecified; I25.10 Atherosclerotic heart disease of native coronary artery without angina pectoris; I10 Essential (primary) hypertension; E78.5 Hyperlipidemia, unspecified; R94.31 Abnormal electrocardiogram [ECG] [EKG]
CPT/HCPCS: 52204; C9740

== ENCOUNTER → 2019-10-13 10:33 | Outpatient (CLI) | payer MEDICARE ==
[2019-06-02 08:29] VITALS: BMI 32.0
[~2019-10-13 10:33] MED LIST changes: +BREO ELLIPTA 11 EACH INH; +PROSCAR5 MG PO
== END | disposition home or self-care (01) ==
LOC: D.HCCECHO 10:33
PROVIDERS: ATTEND Internal Medicine Interventional Cardiology
DX: I25.10 Atherosclerotic heart disease of native coronary artery without angina pectoris (principal)